=== PATIENT | male | born 1985 | race Caucasian/White ===

== ENCOUNTER → 2020-05-28 | Outpatient (CLI) | payer OTHER | LOC: KOH-I 12:22 | DX: R06.02 Shortness of breath (principal); M54.6 Pain in thoracic spine; M47.814 Spondylosis without myelopathy or radiculopathy, thoracic region | CPT/HCPCS: 71046; 72070 ==

== ENCOUNTER → 2022-01-07 | Outpatient (CLI) | payer BC | LOC: US 09:22 | DX: R10.13 Epigastric pain (principal); R16.1 Splenomegaly, not elsewhere classified; N26.1 Atrophy of kidney (terminal) | CPT/HCPCS: 76700 ==

== ENCOUNTER → 2022-02-01 | Outpatient (CLI) | payer BC | LOC: NM 13:00 | DX: R10.11 Right upper quadrant pain (principal); R93.2 Abnormal findings on diagnostic imaging of liver and biliary tract | CPT/HCPCS: 78227; A9537; J2805 ==

== ENCOUNTER 2022-02-02 09:37 | Emergency (ER) | payer BC ==
[2022-02-02 10:47] LABS: HEMOGLOBIN 14.9 gm/dl (14.0-17.5); RED BLOOD COUNT 5.18 M/UL (4.20-5.50); WHITE BLOOD COUNT 9.8 K/UL (4.5-11.0)
[2022-02-02 11:16] LABS: BUN/CREATININE RATIO 12 (0-10)
== END 2022-02-02 16:48 | disposition home or self-care (01) ==
LOC: ER1 09:37
PROVIDERS: Family Medicine
DX: R10.9 Unspecified abdominal pain (principal); R10.819 Abdominal tenderness, unspecified site; I10 Essential (primary) hypertension; Z88.1 Allergy status to other antibiotic agents
CPT/HCPCS: 80053; 81001; 83690; 85025; 96374; 96375; 99284; J2270; J2405; Q9967